=== PATIENT | female | born 1990 | race Caucasian/White ===

== ENCOUNTER 2017-06-14 11:54 | Emergency (ER) | payer OTHER ==
[~2017-06-14] VITALS: Ht 162.6 cm; Wt 70.7 kg
[~2017-06-14 11:54] MED LIST: ANAPROX DS550 M1 PO; CLEOCIN300 MG PO; DOXYCYCLINE HY100 MG PO; ENDOCET 5-3251 EACH PO; FERROUS SULFAT325 MG PO; FIORICET 50-301 EACH PO; FIORICET 50-321 EACH PO; FIORICET,ESG1 TABLET PO; FLAGYL500 MG PO; IBUPROFEN800 MG PO; IRON325 MG PO; MACROBID100 MG PO; MULTIVITAMIN1 EAC2 PO; PRENATAL TABLE1 EAC3 PO; PRENATAL1 EACH PO; TRAMADOL HCL50 MG PO; ULTRAM50 MG PO; VALIUM5 MG PO; Vibramycin, Doryx PO; Vicodin,Lortab 5/500 PO; ZANTAC75 M1 PO; ZOFRAN ODT4 MG PO
[2017-06-14] MEDS ORDERED: LITHIUM CARBON450 MG PO (13:39)
[2017-06-14] MEDS ORDERED: CATAPRES0.2 MG PO (13:39)
[2017-06-14] MEDS ORDERED: PROPRANOLOL HCL20 MG PO (13:40)
[2017-06-14 14:54] VITALS: BP 141/92
== END 2017-06-14 14:55 | disposition home or self-care (01) ==
LOC: EME 11:54
DX: H65.92 Unspecified nonsuppurative otitis media, left ear (principal); K21.9 Gastro-esophageal reflux disease without esophagitis; F41.9 Anxiety disorder, unspecified; F32.9 Major depressive disorder, single episode, unspecified; F31.9 Bipolar disorder, unspecified; Z72.0 Tobacco use; Z88.0 Allergy status to penicillin; Z88.8 Allergy status to other drugs, medicaments and biological substances
CPT/HCPCS: 99281; 99284